=== PATIENT | male | born 1985 | race Caucasian/White ===

== ENCOUNTER 2024-03-10 06:00 | Day surgery (SDC) | payer BC, SELFPAY ==
[2024-03-10] VITALS (9 sets, daily range): BP systolic 135–149; BP diastolic 97–103; PULSE 66–80; RESP 16–18; TEMP 36.1–36.6; O2SAT 98–100; BMI 31.0
[2024-03-10] MEDS: Lactated Ringers 1,000 ML 15 ML IV (06:52)
--- NOTE | 2024-03-10 07:03 | PRE.ANES_ITS ---
ASA Classification* ASA Classification ASA Classification: 2 Assessment & Plan Anesthesia* Anesthesia Assessment Anesthesia Assessment: Discussed sedation and/or anesthesia options, risks, benefits, and alternatives with patient/parents/legal guardian/POA. Questions invited. The patient/parents/legal guardian/POA seems to understand and agrees to proceed with anesthesia plan. Reviewed the physical assessment, medical history, allergy history and patient home medications list prior to surgery/procedure/anesthetic and documented any changes. Performed airway and anesthesia risk assessments. 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 When Was Last Pacemaker Check QUESTION #4 FULL TEXT: You/Your Family Experience fever (hyperthermia) with Anesthesia Last Oral Intake Last Oral intake: Last Oral Intake NPO since 00:00 03/10/24 06:28 Meds taken in AM with sips of No 03/10/24 06:28 water? Meds patient instructed to take am of surgery PONV PONV - dentistry teacher: PONV - dentistry teacher Female No 03/02/24 08:49 HX of Motion Sickness No 03/02/24 08:49 HX of N/V After Surgery No 03/02/24 08:49 Non-Smoker Yes 03/02/24 08:49 Duration of Surgery greater No 03/02/24 08:49 than 60 minutes Number of Risk Factors 1 03/02/24 08:49 PONV Score Low Risk 03/02/24 08:49 Height & Weight Height & Weight: Anesthesia: Height & Weight Height 6 ft 1 in 03/10/24 06:28 Weight: 106.8 kg 03/10/24 06:28 Body Mass Index (BMI) 31.0 03/10/24 06:28 Respiratory Assessment Respiratory Assessment - dentistry teacher: Respiratory Tract Infection Hx - dentistry teacher Hx Respiratory Tract Infection No 03/02/24 08:49 STOP Sleep Apnea STOP Sleep Apnea - dentistry teacher: STOP Sleep Apnea - dentistry teacher Hx Hypertension No 03/02/24 08:49 Hx Sleep Apnea No 03/02/24 08:49 CPAP BIPAP Do you snore loudly (louder Yes 03/02/24 08:49 than talking or can be heard Do you often feel tired/ No 03/02/24 08:49 fatigued/ sleepy during daytime? Has anyone observed you stop No 03/02/24 08:49 breathing during sleep? STOP Results Negative 03/02/24 08:49 QUESTION #5 FULL TEXT : Do you snore loudly (louder than talking or can be heard through closed doors)? 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 Specify any problems Hx of Preganancy in last 3 N/A 03/02/24 08:49 Months Nurse Filling Out Transfusion [id number] 03/02/24 08:49 & Questions: Date: 03/02/24 03/02/24 08:49 Time: 08:52 03/02/24 08:49 Patient unable to answer at this time (ie. confused, unrespo /Reproduction History /Reproductive History - dentistry teacher: /Reproductive Hx- dentistry teacher Hx Now Gestational Age (in weeks): EDC: Hx Hx Para Hx Section SAB Active Medications Active Medications: Current Medications Generic Name Dose Route Start Last Admin Trade Name Freq PRN Reason Stop Dose Admin Cefazolin Sodium 2 gm/ Sodium 110 mls @ 150 mls/hr 03/10/24 07:30 Chloride IV 03/10/24 08:13 PREOP ONE Lactated Ringer's 1,000 mls @ 15 mls/hr 03/10/24 06:30 03/10/24 06:52 IV 15 mls/hr .Q48H GA Administration PFSH Medical History Wears contact lenses Home Medications ?Medication ?Instructions ?Recorded ?Last Taken ?Type NK 03/02/24 Unknown History Allergy/AdvReac Type Severity Reaction Status Date / Time No Known Allergies Allergy Verified 03/10/24 06:33 Surgical History H/O melanoma excision Social History Smoking Status: Never smoker Review of Systems (Anesthesia) ROS Narrative System reviewed and no additional complaints, except as documented.
--- NOTE | 2024-03-10 07:16 | HP.PCM_ITS ---
HPI - General General Date of Service: 03/10/24 HPI Narrative NARCISA MADRIGAL, is a 38 M who presents for removal of an inclusion cyst in the bottom of the scrotum which is getting larger, I did explain to the patient this is probably not a malignancy but he is concerned about it has been getting bigger and bothering him zeroing to remove the inclusion sclerosis we discussed the possibility recurrence as well. [facility] Medical History Wears contact lenses Home Medications ?Medication ?Instructions ?Recorded ?Last Taken ?Type NK 03/02/24 Unknown History Allergy/AdvReac Type Severity Reaction Status Date / Time No Known Allergies Allergy Verified 03/10/24 06:33 Surgical History H/O melanoma excision Social History Smoking Status: Never smoker Vital Signs Vital Signs Vital Signs: 03/10/24 06:28 03/10/24 06:28 03/10/24 07:03 Temperature 97 F L 97 F L Temperature Source Temporal Pulse Rate 66 66 Respiratory Rate 16 16 Respiratory Pattern Normal Blood Pressure 149/103 H 149/103 H Blood Pressure Mean 118 Blood Pressure Source Monitor Blood Pressure Position Sitting Blood Pressure Location Left Arm Pulse Ox 100 100 Oxygen Delivery Method Room Air Weight Weight: 106.8 kg Body Mass Index (BMI) 31.0
--- NOTE | 2024-03-10 07:26 | PCM.DC ---
Discharge Instructions Diet Discharge Diet: No restrictions Activity Discharge Activity: Return to Normal Activity May shower in (days): 1 Dressing / Incision Call your doctor if you observe: Fever of 101 or Higher Cleanse incision/area with: Soap & Water Follow Up Care Please Follow Up With: Jose Britt MD When: Call [phone] for an appointment Test Results: Test results from this visit will be discussed in further detail at your follow-up appointment, if applicable. Discharge Plan Admission Primary Reason for Your Visit: excision of scrotal mass Attending Provider: Jose Britt Primary Care Provider: Domo Garcia Instructions Print Language: [place] Discharge Orders/Prescriptions Prescriptions: New cephalexin 500 mg capsule 500 mg PO TID Qty: 10 0RF ibuprofen 600 mg tablet 600 mg PO Q6H PRN (Reason: fever or pain) Qty: 20 0RF No Action NK Referrals / Follow Up: Domo Garcia DO [Primary Care Provider] - Disposition Disposition (needs filled in before D/C Order can be placed): Home, Self Care
[2024-03-10] MEDS: Cefazolin 2 GM in 0.9% Normal Saline (100mL Bag) 100 ML IV (07:27)
--- NOTE | 2024-03-10 07:30 | ABS_PTH ---
PATIENT: NARCISA MADRIGALACCHomero #:[id number] [place] [facility] [place][id number] AGE/SX: 38/M ROOM: RE03/10/[address]: Dr. Jose Britt MD : 1985 BED: DIS: 03/10/2024 SPEC #: [id number] RECD: 03/10/24 10:04 STATUS: MEDHAT BAKER #: [id number] SONG: 03/10/24 07:[address]: Jose Britt DEPT: SURGICAL PATHOLOGY RECD BY: Greer Robles ENTERED: 03/10/24 12:23 SP TYPE: Abscess OTHR DR: Dr. Doom Garcia, DO Tissues: Scrotum, NOS Procedures: Surgery Specimen Level III HEADER OPERATION: Excision, scrotal mass PRE-OP DIAGNOSIS: Scrotal mass TISSUE SUBMITTED: Scrotal abscess wall MICROSCOPIC DIAGNOSIS Scrotal abscess wall, excision: Pieces of fibroadipose and fibroconnective tissue with acute and chronic inflammation and granulation tissue reaction. QUEENIE/ 03/13/2024 MICROSCOPIC DESCRIPTION Slides are reviewed. GROSS DESCRIPTION Received in fixative is one container labeled with the patient's name and designated Scrotal abscess wall. The specimen consists of four variable size pieces of pink soft tissue measuring in aggregate 3.0 x 2.0 x 1.0cm. Two larger pieces are serially sectioned. The entire specimen is submitted in two cassettes. QUEENIE/ 03/10/2024 TC:2 CPT:15567
[2024-03-10] MEDS: Bupivacaine Mpf 0.5% 30 ML VIAL (07:56)
--- NOTE | 2024-03-10 07:56 | OP.PCM_ITS ---
Report of Operation Date of Procedure: 03/10/24 Pre-Operative Diagnosis: Scrotal mass Post-Operative Diagnosis: The same Surgery/Procedure Performed:: Excision of scrotal mass Description of Surgical Findings:: Patient was taken back to the operating room at this with induction of anesthesia the the testicles were prepped and draped in usual sterile fashion on examination the patient had a round soft smooth mass in the lower part of the p atient's right hemiscrotum he does have a story of having some trauma to the area I thought he had a bee sting happened to the area. He had is a mass there it has been bothering him and wishes to have it examined excised. Patient was taken back to the operating room at this with induction of anesthesia he was placed supine on the table scrotum and testicles prepped and draped in usual sterile fashion infiltrated above this mass mass measured 2 cm x 2 cm in size in the lower part of the right scrotum in the dependent portion infiltrated the skin above the mass and made an incision right above the mass and then try to first dissect around the mass thinking that this was an inclusion cyst but immediately got into the mass and got pus and purulent drainage from the inside of the scrotal mass. This was sent off for culture I then grabbed the edges of the abscess wall and then excised this circumferentially this was sent off as a specimen I am sure this can be negative appears to be some sort of inclusion cyst or abscess mass that has developed in the scrotum that was chronic. I then excised the abscess completely I then closed the small incision with running 3-0 chromic stitches first the deep layer and then the skin layer. This was copiously irrigated prior to doing this. Fluffs and scrotal support were placed and the patient will be sent home with antibiotics and follow-up in the office for checkup. Surgeon: Jose Britt Type of Anesthesia: General Drains: none Admit VTE Documentation VTE Present on Admission: No VTE Mechan Device Prophylaxis: SCD's VTE Pharm Prophylaxis ordered?: No
[2024-03-10] MEDS: Ketorolac 15 MG/ML Vial IV (08:45)
--- NOTE | 2024-03-10 11:04 | PCM.POST.ANE ---
Anesthesia: Postop Eval I Current Vital Signs Temperature: 97.9 F Pulse Rate: 80 Blood Pressure: 144/100 Respiratory Rate: 16 Pulse Ox: 98 Oxygen Delivery Method: Room Air Assessment Airway patent: Yes Spontaneous unlabored respirations: Yes Mental status: Awake and Calm nausea: No Vomiting: No Anesthesia Complication: No Fluid Hydration Crystalloid volume administer (ml): 500 Total IV fluid infused: 500 Progress Note Anesthesia document: Postop Eval 1 completed: Yes
--- NOTE | 2024-03-10 13:08 | POSTOPAN2_ITS ---
Anesthesia Postop Eval I Sum Postop Eval Completion status Anesthesia document: Postop Eval 1 completed: Yes Anesthesia Postop Eval I Summary Anesthesia Postop Eval I Summary: Anesthesia Postop Eval I: Assessment Summary Airway patent Yes 03/10/24 11:05 CONFERENCE AND EVENT ORGANISER.MDOT Spontaneous unlabored Yes 03/10/24 11:05 CONFERENCE AND EVENT ORGANISER.OT respirations Mental status Awake,Calm 03/10/24 11:05 CONFERENCE AND EVENT ORGANISER.MDOT nausea No 03/10/24 11:05 CONFERENCE AND EVENT ORGANISER.MDOT Vomiting No 03/10/24 11:05 CONFERENCE AND EVENT ORGANISER.MDOT Anesthesia Postop Eval I: Fluid Summary Crystalloid volume administer 500 03/10/24 11:05 CONFERENCE AND EVENT ORGANISER.MDOT (ml) Colloids volume administered ( ml) Blood Product volume administered (ml) Total IV fluid infused 500 03/10/24 11:05 CONFERENCE AND EVENT ORGANISER.OT Anesthesia Postop Eval I: Summary Notes Anesthesia Complication No 03/10/24 11:05 CONFERENCE AND EVENT ORGANISER.OT Anesthesia Complication Comment: Post-operative progress note Anesthesia: Postop Eval II Evaluation Mental status: Calm Pain Level: 2 nausea: No Vomiting: No Complications Anesthesia Complication: No
--- NOTE | 2024-03-10 13:08 | PCM.POSTANE2 ---
Anesthesia Postop Eval I Sum Postop Eval Completion status Anesthesia document: Postop Eval 1 completed: Yes Anesthesia Postop Eval I Summary Anesthesia Postop Eval I Summary: Anesthesia Postop Eval I: Assessment Summary Airway patent Yes 03/10/24 11:05 MANAGER CAMP.MDOT Spontaneous unlabored Yes 03/10/24 11:05 MANAGER CAMP.OT respirations Mental status Awake,Calm 03/10/24 11:05 MANAGER CAMP.MDOT nausea No 03/10/24 11:05 MANAGER CAMP.MDOT Vomiting No 03/10/24 11:05 MANAGER CAMP.MDOT Anesthesia Postop Eval I: Fluid Summary Crystalloid volume administer 500 03/10/24 11:05 MANAGER CAMP.MDOT (ml) Colloids volume administered ( ml) Blood Product volume administered (ml) Total IV fluid infused 500 03/10/24 11:05 MANAGER CAMP.OT Anesthesia Postop Eval I: Summary Notes Anesthesia Complication No 03/10/24 11:05 MANAGER CAMP.OT Anesthesia Complication Comment: Post-operative progress note Anesthesia: Postop Eval II Evaluation Mental status: Calm Pain Level: 2 nausea: No Vomiting: No Complications Anesthesia Complication: No
== END 2024-03-10 09:11 | disposition home or self-care (01) ==
LOC: SDC 06:01 → AC 06:03
PROVIDERS: PCP Family Medicine; Referring Provider Urology; Visit Provider Urology
PROC: (CPT 55100; principal; 2024-03-10 07:15)
DX: N50.89 Other specified disorders of the male genital organs (principal); L72.0 Epidermal cyst
CPT/HCPCS: 55100; 87070; 87075; 87077; 87186; 87205; 88304; J7120; A4216; J2405